=== PATIENT | female | born 1950 | race African-American/Black ===

== ENCOUNTER 2017-03-29 06:40 | Day surgery (SDC) | payer MEDICARE, OTHER ==
[2017-03-29] MEDS ORDERED: ONDANSETRON HCL INJ/PF 4 MG/2 ML SDV ONE (06:56)
[2017-03-29] MEDS ORDERED: GLYCOPYRROLATE INJ 0.4 MG/2 ML VIAL ONE (06:56)
[2017-03-29] MEDS ORDERED: EPINEPHRINE INJ 1 MG/10 ML DISP.SYRIN ONE (06:57)
[2017-03-29] MEDS ORDERED: FLUMAZENIL INJ 0.5 MG/5 ML VIAL ONE (06:57)
[2017-03-29] MEDS ORDERED: NALOXONE HCL INJ/PF 0.4 MG/1 ML SDV ONE (06:57)
[2017-03-29] MEDS ORDERED: GLUCAGON,HUMAN RECOMB 1 MG INJ ONE (06:58)
[2017-03-29] MEDS: MIDAZOLAM 2 MG/2 ML INJ ONE ×3 (07:33→07:50)
[2017-03-29] MEDS: FENTANYL CITRATE INJ/PF 100 MCG/2 ML AMPUL ONE ×2 (07:35→07:46)
--- NOTE | 2017-03-29 08:33 | PDOC DISCHARGE SUMMARY ---
Discharge Summary (SDC) - Discharge Final Diagnosis: Diverticuloses Date of Surgery: 03/29/17 Discharge Date: 03/29/17 Condition: Good Treatment or Instructions: [facility] [place] [id number] POST ENDOSCOPY DISCHARGE INSTRUCTIONS 1. Diet: Start clear liquids that a regular diet as tolerated. 2. Resume all preoperative medications. All oral anticoagulants and aspirins can be resumed 24 hours after procedure. 3. If a polypectomy was performed some bleeding per rectum may occur. This should stop within 3 days. If not, please contact the office. 4. If you had a colonoscopy you may experience some bloating and delayed return of normal bowel function for several days, your regular bowel movement pattern should resume within a week. 5. Please contact [facility] at to make an appointment with Dr. Guan for 1 to 3 weeks following procedure. 6. If you have any questions or concerns regarding your care,treatment plan or follow up, please contact our office. 7. Per clinical guidelines we recommend you undergo a repeat colonoscopy in 7 years. Referrals: SAUL LOUIS MD [Primary Care Provider] - Discharge Activity: Activity As Tolerated Home Care Assistance: None Needed Report the Following to Your Physician Immediately: Shortness of Breath, Increase in Pain, Fever over 101 Degrees
--- NOTE | 2017-03-29 08:58 | OPERATIVE REPORT E ---
Operative Report NAME: REANNA ALTAMIRANO : 1950 AGE: 66Y DATE OF SURGERY: 03/29/2017 ROOM: PREOPERATIVE DIAGNOSIS: 1. History of diverticulitis. 2. Strong family history of colon cancer. POSTOPERATIVE DIAGNOSIS: 1. Sigmoid diverticuloses. 2. Otherwise normal colonoscopy. OPERATION: Total colonoscopy to the cecum with photo documentation. SURGEON: DELBERT TURNER M.D. ANESTHESIA: Conscious sedation. COMPLICATIONS: None. ESTIMATED BLOOD LOSS: None. DRAINS: None. TISSUE REMOVED OR ALTERED: None. PROCEDURE: The patient was taken to the preoperative holding area of [facility] to the main endoscopy suite where monitoring devices were attached and she was placed in the left lateral decubitus position. Instrumentation was set up for colonoscopy. Surgical plan and surgical timeout were conducted. Rectal exam was performed. There was no evidence of mass or bleeding. Sphincter tone was normal. A flexible adult colonoscope was advanced through the anorectal canal all the way to the cecum. This was an excellent study on a well-prepped bowel. The patient tolerated it well. The scope was withdrawn the length of the colon, checking the mucosa carefully. There was no evidence of tumor, stricture, bleeding, or polyp. In the sigmoid colon, there were extensive diverticuloses. There was no evidence of stricture. The scope was brought back through the anorectal canal. No other pathology identified. The scope was retroflexed in the anal canal. There were small internal hemorrhoids. Otherwise, no abnormalities. Scope was withdrawn from the patient's anus. She tolerated the procedure well, was recovered, and taken to the perioperative area in stable condition. FINAL DIAGNOSIS: Dense sigmoid diverticuloses. Otherwise normal colonoscopy. RECOMMENDATIONS: The patient will be discharged home, seen in the [facility] in approximately 1 to 2 weeks, and be an appropriate candidate for consideration for followup colonoscopy in 7 years, given her strong family history of colon cancer. DICTATING PHYSICIAN: DELBERT TURNER M.D. [id number] PHY#: [id number] ID: [id number] JOB#: [id number] ACCT: [id number] cc:DELBERT TURNER M.D. >
[2017-03-29 09:53] VITALS: BP 121/76
== END 2017-03-29 09:30 | disposition home or self-care (01) ==
LOC: END 06:40
PROVIDERS: ATTEND Surgery
PROC: 0DJD8ZZ Inspection of Lower Intestinal Tract, Via Natural or Artificial Opening Endoscopic (ICD-10-PCS; principal; 2017-03-29 07:30)
DX: Z12.11 Encounter for screening for malignant neoplasm of colon (principal); K57.30 Diverticulosis of large intestine without perforation or abscess without bleeding; K27.9 Peptic ulcer, site unspecified, unspecified as acute or chronic, without hemorrhage or perforation; Z79.899 Other long term (current) drug therapy; Z80.0 Family history of malignant neoplasm of digestive organs; Z87.19 Personal history of other diseases of the digestive system; E04.1 Nontoxic single thyroid nodule
CPT/HCPCS: 45378; J2250; J0171; J3010; J1610; J2310; J2405; J3490

== ENCOUNTER 2017-12-25 05:05 | Emergency (ER) | payer MEDICARE, OTHER ==
[2017-12-25] MEDS ORDERED: KETOROLAC TROMETHAMINE INJ/PF 30 MG/1 ML SDV IV ONE (05:26)
[2017-12-25] MEDS ORDERED: ONDANSETRON HCL INJ/PF 4 MG/2 ML SDV IV ONE (05:26)
--- NOTE | 2017-12-25 05:30 | ER Document Report ---
ED Medical Screen (RME) - General Chief Complaint: Abdominal Pain Stated Complaint: LEFT FLANK, ABDOMINAL PAINS Time Seen by Provider: 12/25/17 05:15 Mode of Arrival: Ambulatory Information source: Patient Notes: Patient is a 67-year-old female who presents the emergency department with chief complaint of left lower quadrant pain. Patient reports the pain started approximately 3 hours prior to arrival. She states the pain is in the left lower quadrant and radiates around to her left flank area. Patient reports she had a bowel movement earlier with a hard pebbly stools. Patient states she thinks she may be constipated patient. She reports that she has also vomited 3 or 4 times. She denies any fever or urinary symptoms. Patient denies any blood in her vomit or stool. She reports past medical history of diverticulitis. Exam: Tenderness to palpation to left lower quadrant. No CVA tenderness. I have greeted and performed a rapid initial assessment of this patient. A comprehensive ED assessment and evaluation of the patient, analysis of test results and completion of the medical decision making process will be conducted by additional ED providers. Dictation of this chart was performed using voice recognition software; therefore, there may be some unintended grammatical errors. TRAVEL OUTSIDE OF THE [place] IN LAST 30 DAYS: No - Related Data Allergies/Adverse Reactions: Penicillins Allergy (Verified 03/29/17 07:09) Generalized rash Past Medical History - Past Medical History Cardiac Medical History: Denies: Hx Coronary Artery Disease, Hx Heart Attack, Hx Hypertension Pulmonary Medical History: Denies: Hx Asthma, Hx Bronchitis, Hx COPD, Hx Pneumonia Neurological Medical History: Denies: Hx Cerebrovascular Accident, Hx Seizures Musculoskeltal Medical History: Denies Hx Arthritis Past Surgical History: Denies: Hx Hysterectomy - Immunizations Hx Diphtheria, Pertussis, Tetanus Vaccination: Yes Influenza Administration Date for 11/2016 - 04/2017 Season: 12/04/16 Physical Exam - Vital signs Vitals: Temp Pulse Resp BP Pulse Ox 97.6 F 63 16 102/77 100 12/25/17 05:07 12/25/17 05:07 12/25/17 05:07 12/25/17 05:07 12/25/17 05:07 Course - Vital Signs Vital signs: Temp Pulse Resp BP Pulse Ox 97.6 F 63 16 102/77 100 12/25/17 05:07 12/25/17 05:07 12/25/17 05:07 12/25/17 05:07 12/25/17 05:07 Doctor's Discharge - Discharge Referrals: DELBERT TURNER MD [Primary Care Provider] - Follow up as needed
[2017-12-25 05:56] LABS: ABSOLUTE LYMPHOCYTES (AUTO) 0.9 10^3/uL (0.5-4.7); ABSOLUTE MONOCYTES (AUTO) 0.7 10^3/uL (0.1-1.4); ABSOLUTE NEUT (AUTO) 6.3 10^3/uL (1.7-8.2); BASOPHILS % (AUTO) 0.3 % (0-2); EOSINOPHILS % (AUTO) 0.5 % (0-6); HEMATOCRIT 32.8 % (36.0-47.0); HEMOGLOBIN 10.9 g/dL (12.0-15.5); LYMPHOCYTES % (AUTO) 10.8 % (13-45); MEAN CORPUSCULAR HEMOGLOBIN 27.4 pg (27.0-33.4); MEAN CORPUSCULAR HGB CONC 33.2 g/dL (32.0-36.0); MEAN CORPUSCULAR VOLUME 83 fl (80-97); MONOCYTES % (AUTO) 8.6 % (3-13); PLATELET COUNT 255 10^3/uL (150-450); RED BLOOD COUNT 3.97 10^6/uL (3.72-5.28); RED CELL DISTRIBUTION WIDTH 14.5 % (11.5-14.0); SEGMENTED NEUTROPHILS % (AUTO) 79.8 % (42-78); TOTAL CELLS COUNTED % (AUTO) 100 %; WHITE BLOOD COUNT 7.9 10^3/uL (4.0-10.5)
[2017-12-25 06:16] LABS: ALANINE AMINOTRANSFERASE 17 U/L (9-52); ALBUMIN 4.1 g/dL (3.5-5.0); ALKALINE PHOSPHATASE 79 U/L (38-126); ANION GAP 12 (5-19); ASPARTATE AMINO TRANSFERASE 25 U/L (14-36); BILIRUBIN,DIRECT 0.1 mg/dL (0.0-0.4); BILIRUBIN,TOTAL 0.4 mg/dL (0.2-1.3); BLOOD UREA NITROGEN 22 mg/dL (7-20); CALCIUM 9.7 mg/dL (8.4-10.2); CARBON DIOXIDE 29 mmol/L (22-30); CHLORIDE 103 mmol/L (98-107); GLUCOSE 128 mg/dL (75-110); POTASSIUM 3.5 mmol/L (3.6-5.0); SODIUM 143.8 mmol/L (137-145); TOTAL PROTEIN 7.6 g/dL (6.3-8.2)
--- NOTE | 2017-12-25 06:26 | RADIOLOGY REPORT (SQ) ---
EXAM DESCRIPTION: XR ABDOMEN 1 VIEW (KUB) COMPLETED DATE/TME: 12/25/2017 05:27 CLINICAL HISTORY: 67 years Female, LLQ pain eval for constipation COMPARISON: None. NUMBER OF VIEWS/TECHNIQUE: 2 FINDINGS: Intestinal gas pattern is within normal limits. Paucity of bowel gas. Colonic stool retention. Several possible left renal stones measure up to 0.7 cm each. Grossly intact skeletal structures. IMPRESSION: No acute findings. Possible left nephrolithiasis.
--- NOTE | 2017-12-25 06:47 | ER Document Report ---
ED General - General Chief Complaint: Abdominal Pain Stated Complaint: LEFT FLANK, ABDOMINAL PAINS Time Seen by Provider: 12/25/17 05:15 Mode of Arrival: Ambulatory TRAVEL OUTSIDE OF THE [place] IN LAST 30 DAYS: No - HPI Notes: Patient is a 67-year-old female that presents to the emergency department for chief complaint of left lower quadrant abdominal pain. Patient reports abdominal pain in the left lower quadrant that radiates into her left back. Pain started suddenly this morning. She describes it as achy and occasionally sharp. The pain was waxing and waning but had not completely resolved. She did get relief with Toradol given upon arrival to the emergency room. She reports associated nausea with 2 episodes of vomiting. She denies any aggravating or relieving factors to her pain. She denies similar pain in the past stating this feels different than her diverticulitis. She denies history of kidney stones. Past Medical History: Seasonal allergies, diverticulosis Past Surgical History: Negative Social History: Denies drugs alcohol and tobacco Family History: Reviewed and noncontributory for presenting illness Allergies: Reviewed, see documented allergy list. REVIEW OF SYSTEMS: CONSTITUTIONAL : No fever No chills No diaphoresis No recent illness EENT: No vision changes No congestion No sore throat CARDIOVASCULAR: No chest pain No palpitations RESPIRATORY: No shortness of breath No cough No difficulty breathing GASTROINTESTINAL: abdominal pain nausea vomiting No diarrhea GENITOURINARY: No dysuria No hematuria No difficulty urinating MUSCULOSKELETAL: No back pain No leg pain No arm pain SKIN: No rashes No lesions LYMPHATIC: No swollen, enlarged glands. NEUROLOGICAL: No lightheadedness No headache No weakness No paresthesias PSYCHIATRIC: No anxiety No depression PHYSICAL EXAMINATION: Vital signs reviewed, nursing noted reviewed. GENERAL: Well-appearing, well-nourished and in no acute distress. HEAD: Atraumatic, normocephalic. EYES: Eyes appear normal, extraocular movements intact, sclera anicteric, conjunctiva are normal. ENT: nares patent, oropharynx clear without exudates. Moist mucous membranes. NECK: Normal range of motion, supple without lymphadenopathy LUNGS: Breath sounds clear to auscultation bilaterally and equal. No wheezes rales or rhonchi. HEART: Regular rate and rhythm without murmurs ABDOMEN: Soft, mild left lower quadrant tenderness, normoactive bowel sounds. No rebound, guarding, or rigidity. No masses appreciated. EXTREMITIES: Nontender, good range of motion, no pitting or edema. NEUROLOGICAL: No focal neurological deficits. Moves all extremities spontaneously Motor and sensory grossly intact on exam. PSYCH: Normal mood, normal affect. SKIN: Warm, Dry, normal turgor, no rashes or lesions noted on exposed skin - Related Data Allergies/Adverse Reactions: Penicillins Allergy (Verified 03/29/17 07:09) Generalized rash Past Medical History - General Information source: Patient - Social History Smoking Status: Never Smoker Family History: Reviewed & Not Pertinent Patient has suicidal ideation: No Patient has homicidal ideation: No - Past Medical History Cardiac Medical History: Denies: Hx Coronary Artery Disease, Hx Heart Attack, Hx Hypertension Pulmonary Medical History: Denies: Hx Asthma, Hx Bronchitis, Hx COPD, Hx Pneumonia Neurological Medical History: Denies: Hx Cerebrovascular Accident, Hx Seizures Renal/ Medical History: Denies: Hx Peritoneal Dialysis Musculoskeletal Medical History: Denies Hx Arthritis Past Surgical History: Denies: Hx Hysterectomy - Immunizations Hx Diphtheria, Pertussis, Tetanus Vaccination: Yes Hx Pneumococcal Vaccination: 02/05/15 Review of Systems - Review of Systems Notes: Dictated Physical Exam - Vital signs Vitals: Temp Pulse Resp BP Pulse Ox 97.6 F 63 16 102/77 100 12/25/17 05:07 12/25/17 05:07 12/25/17 05:07 12/25/17 05:07 12/25/17 05:07 - Notes Notes: Dictated Course - Re-evaluation Re-evalutation: 12/25/17 06:46 Vitals reviewed. Nursing notes reviewed. Patient had significant improvement of her symptoms with Zofran and Toradol. 12/25/17 07:27 Patient reevaluated and is still resting comfortably. She states her pain is minimal currently. She denies any nausea. Her lab work shows no electrolyte derangements or renal insufficiency. There is no urinary tract infection. KUB is suggestive of a left-sided ureterolithiasis which is consistent with patient' s symptoms. She will be started on Flomax and given pain medication at home. She was referred to urology for follow-up if her symptoms persist. She was counseled on return precautions and verbalized understanding. She was discharged home in stable condition. Laboratory 12/25/17 12/25/17 12/25/17 05:42 05:42 06:37 WBC 7.9 RBC 3.97 Hgb 10.9 L Hct 32.8 L MCV 83 MCH 27.4 MCHC 33.2 RDW 14.5 H Plt Count 255 Seg Neutrophils % 79.8 H Lymphocytes % 10.8 L Monocytes % 8.6 Eosinophils % 0.5 Basophils % 0.3 Absolute Neutrophils 6.3 Absolute Lymphocytes 0.9 Absolute Monocytes 0.7 Absolute Eosinophils 0.0 Absolute Basophils 0.0 Sodium 143.8 Potassium 3.5 L Chloride 103 Carbon Dioxide 29 Anion Gap 12 BUN 22 H Creatinine 0.88 Est GFR ( Amer) > 60 Est GFR (Non-Af Amer) > 60 Glucose 128 H Calcium 9.7 Total Bilirubin 0.4 Direct Bilirubin 0.1 Neonat Total Bilirubin Not Reportable Neonat Direct Bilirubin Not Reportable Neonat Indirect Bili Not Reportable AST 25 ALT 17 Alkaline Phosphatase 79 Total Protein 7.6 Albumin 4.1 Lipase 91.0 Urine Color STRAW Urine Appearance SLIGHTLY-CLOUDY Urine pH 8.0 Ur Specific [place] 1.009 Urine Protein NEGATIVE Urine Glucose (UA) NEGATIVE Urine Ketones TRACE H Urine Blood NEGATIVE Urine Nitrite NEGATIVE Urine Bilirubin NEGATIVE Urine Urobilinogen NEGATIVE Ur Leukocyte Esterase NEGATIVE Urine WBC (Auto) 2 Urine RBC (Auto) 1 Squamous Epi Cells Auto <1 Urine Mucus (Auto) RARE Urine Ascorbic Acid NEGATIVE KUB X-Ray 12/25/17 05:27 IMPRESSION: No acute findings. Possible left nephrolithiasis. - Vital Signs Vital signs: Temp Pulse Resp BP Pulse Ox 97.6 F 63 16 102/77 100 12/25/17 05:07 12/25/17 05:07 12/25/17 05:07 12/25/17 05:07 12/25/17 05:07 - Laboratory Result Diagrams: 12/25/17 05:42 12/25/17 05:42 Laboratory results interpreted by me: 12/25/17 12/25/17 12/25/17 05:42 05:42 06:37 Hgb 10.9 L Hct 32.8 L RDW 14.5 H Seg Neutrophils % 79.8 H Lymphocytes % 10.8 L Potassium 3.5 L BUN 22 H Glucose 128 H Urine Ketones TRACE H Discharge - Discharge Clinical Impression: Ureterolithiasis Condition: Stable Disposition: HOME, SELF-CARE Instructions: Kidney Stone ([facility]) Additional Instructions: Please return to the emergency department if you have any worsening, or concern of your symptoms. Please return to the emergency department if you develop chest pain, difficulty breathing, severe abdominal pain, or ongoing vomiting. Please follow-up with your primary care physician in 2-3 days and any other recommended physicians. If prescribed, take all medications as directed. If you have any questions or concerns do not hesitate to return the emergency department for evaluation. [] Prescriptions: Hydrocodone/Acetaminophen [[place] 5-325 mg Tablet] 1 tab PO Q6 PRN #12 tablet PRN Reason: pain Tamsulosin HCl [Flomax 0.4 mg Cap.sr] 0.4 mg PO DAILY #7 cap.sr.24h Referrals: [facility] [Provider Group] - Follow up in 3-5 days
[2017-12-25 07:01] LABS: APPEARANCE,URINE SLIGHTLY-CLOUDY; BILIRUBIN,URINE NEGATIVE (NEGATIVE); COLOR,URINE STRAW; GLUCOSE, URINE NEGATIVE (NEGATIVE); KETONES,URINE TRACE mg/dL (NEGATIVE); LEUKOCYTE ESTERASE,URINE NEGATIVE (NEGATIVE); NITRITE,URINE NEGATIVE (NEGATIVE); PROTEIN,URINE NEGATIVE (NEGATIVE); URINE SPECIFIC GRAVITY 1.009; UROBILINOGEN,URINE NEGATIVE mg/dL (<2.0)
[2017-12-25 08:07] VITALS: BP 109/66
== END 2017-12-25 08:07 | disposition home or self-care (01) ==
LOC: ER 05:05
DX: N20.1 Calculus of ureter (principal); R10.32 Left lower quadrant pain; Z88.0 Allergy status to penicillin
CPT/HCPCS: 99284; 96374; 96375; 36415; 83690; 85025; 80053; 81001; 74018; J1885; J2405